=== PATIENT | male | born 1930 | race Caucasian/White ===

== ENCOUNTER 2017-02-22 14:28 | Emergency (ER) | payer MEDICARE ==
[~2017-02-22] VITALS: Ht 175.3 cm; Wt 102.1 kg
[~2017-02-22 14:28] MED LIST: (None)20 M1 PO; ALBU3IS NEB; AMLO10; AMLO5 PO; ASPI325 PO; ASPI325EC; ASPI81CH PO; ATOR40TA PO; AZIT500 PO; BYSTOLIC 2.5 MG; Bactrim Ds Tab1 EACH PO; Bystolic2.5 MG PO; CLOP75 PO; DOCU100 PO; FINA5; FINA5 PO; FURO40 PO; INDO25; INDO25 PO; Keflex500 MG PO; LISI20; NEBI5 PO; Norvasc5 MG PO; PANT40 PO; SIMV40; SPIR25; SPIR25 PO; VITAMIN C 1000MG; VITAMIN C500 MG PO; ZESTRIL40 MG PO
[2017-02-22 14:40] LABS: Calcium, Ionized (POC) 1.13 mmol/L (1.10-1.46); Chloride (POC) 103 mmol/L (98-108); Creatinine (POC) 0.9 mg/dL (0.8-1.3); Glucose (ISTAT POC) 179 mg/dL (70-99); Hemoglobin (POC) 9.5 g/dL (13.5-17.5); Potassium (POC) 3.9 mmol/L (3.5-5.5); Sodium (POC) 143 mmol/L (135-148); Total CO2 (POC) 25 mmol/L (21-32)
== END 2017-02-22 14:46 ==
LOC: ER 14:28
PROVIDERS: Emergency Medicine
DX: I46.9 Cardiac arrest, cause unspecified (principal); I10 Essential (primary) hypertension; Z79.82 Long term (current) use of aspirin; Z79.899 Other long term (current) drug therapy; Z87.891 Personal history of nicotine dependence; Z96.641 Presence of right artificial hip joint
CPT/HCPCS: 36415; 80047; 85014; 92950; 96374; 96375; 99285